=== PATIENT | female | born 1995 | race Caucasian/White ===

== ENCOUNTER 2017-02-24 19:13 | Emergency (ER) | payer MEDICAID ==
[~2017-02-24] VITALS: Ht 144.8 cm; Wt 72.6 kg
[2017-02-24 19:27] VITALS: BP 120/78
--- NOTE | 2017-02-24 19:36 | NUR ---
TO ER BED 8
--- NOTE | 2017-02-24 19:38 | NUR ---
21 Y/O F W/C/O STIFNESS/PAIN TO NECK SINCE TODAY. PT DENIES ANY INJURY, STATES WOKE UP LIKE THIS BUT PAIN HAS GOTTEN WORSE THORUGHOUT THE DAY. DENIES ANY CHEST PAIN OR NUMBNESS TO REST OF BODY.
--- NOTE | 2017-02-24 19:55 | NUR ---
Patient being evaluated by physician at bedside.
[2017-02-24] MEDS ORDERED: IBUPROFEN 600 MG TAB PO ONE (20:00)
[2017-02-24 20:20] VITALS: BP 121/92
--- NOTE | 2017-02-24 20:20 | NUR ---
Patient discharged with v/s stable. Written and verbal after care instructions given and explained. Patient alert, oriented and verbalized understanding of instructions. Ambulatory with steady gait. All questions addressed prior to discharge. ID band removed. Patient advised to follow up with PMD THIS WK OR RETURN TO ER IF CONDITION WORSENS. Rx of MOTRIN AND ROBAXIN given. Patient educated on indication of medication including possible reaction and side effects. Opportunity to ask questions provided and answered.
== END 2017-02-24 20:20 | disposition home or self-care (01) ==
LOC: MED 19:13
DX: M62.838 Other muscle spasm (principal)
CPT/HCPCS: 99283